=== PATIENT | female | born 1960 | race Caucasian/White ===

== ENCOUNTER 2016-11-08 16:27 | Emergency (ER) | payer OTHER ==
[~2016-11-08] VITALS: Ht 165.1 cm; Wt 113.6 kg
[2016-11-08 16:30] VITALS: BP 138/85; PULSE 95; RESP 22; O2SAT 95
[2016-11-08 17:44] LABS: BASOPHILS % (AUTO) 0.3 % (0-3); EOSINOPHILS % (AUTO) 4.4 % (0-5); MONOCYTES % (AUTO) 7.3 % (4-12); Mean Corpuscular Volume 82.1 fL (81-100); NEUTROPHILS % (AUTO) 57.8 % (40-74); Platelet Count 302 bil/L (150-400)
[2016-11-08 18:07] LABS: Magnesium 1.8 mg/dL (1.6-2.6)
--- NOTE | 2016-11-08 18:42 | ED.REPORT ---
HPI-Extremity Problem Upper Date of Service Nov 08, 2016 ED Provider: Lia Ray MD The patient is a 56 year old female who presents to the emergency department complaining of left ringer finger swelling and pain that began yesterday. There is now a blister forming on the distal portion. She denies any known injury or trauma. Over the last few weeks she has noticed a cough with green and yellow sputum, shortness of breath, raspy voice, fatigue, difficulty sleeping, nausea, and myalgias. She was seen in [place] on the for these symptoms and was diagnosed with Influenza and pleurisy. She denies fever. Nursing Notes Stated Complaint: POSSIBLE INFECTION IN FINGER Chief Complaint: Extremity Trauma Nursing Notes Reviewed: Yes Allergies: Coded Allergies: No Known Allergies (Unverified , 08/21/16) No Active Prescriptions or Reported Meds General Time Seen by MD: 18:18 Chief Complaint Finger injury left 4 Hx Obtained From: Patient, Other family... Arrived By: Walk-in Onset Occurred: Yesterday Symptom Duration: Since onset Location: : Finger left 4 Quality: Painful Severity: Current: Moderate Severity: Maximum: Moderate Recent Healthcare: No recent hospitalization, Recent doctor visit Similar Sx Previous: No Past Medical History Past Medical History Recent positive influenza Family History Noncontributory Social History Other Social History: Good social support, Local resident Ambulatory Status Independent Review of Systems Review of Systems Note: +raspy voice Constitutional: Reports: Chills, Fatigue, Malaise Musculoskeletal: Reports: Extremity pain, Extremity swelling, Myalgia Skin: Reports Rash Complete sys rev & neg: except as marked. Respiratory: Reports: Prod cough, green, Prod cough, yellow, Shortness of breath GI: Reports: Nausea Physical Exam Initial Vital Signs Vital Signs (First) Date Time Temp Pulse Resp B/P Pulse Ox O2 Delivery O2 Flow Rate FiO2 11/08/16 16:30 36.8 95 22 138/85 95 Room Air Initial VS: Reviewed Head / Eyes: Atraumatic, Normocephalic, PERRL ENT: Mucous membranes moist, Conjunctiva normal, No scleral icterus Neck: Supple, Non-tender, Full range of motion Respiratory: Breath sounds normal, Clear to auscultation, No respiratory distress Cardiovascular: Regular rate & rhythm, Heart sounds normal, Intact distal pulses Abdomen / GI: Soft, Non-tender, No guarding, No rebound, No distention Lower Extremities: Vascular intact, Neuro intact, No swelling, No tenderness Skin: Warm, Dry, No cyanosis Neurologic: Alert, Oriented, Nonfocal Psychiatric: Mood/affect normal, Behavior normal, Normal thought content General/Constitutional: Awake, Alert Appearance / Presentation: Positive: Uncomfortable Wrist / Hand: Neurologic intact, Vascular intact To her left 4th finger there is a paronychial bulla that goes all the way down to the DIP joint. There is slight erythema extending down to the first knuckle. Interpretation & Diagnostics Lab Results Interpretation Result Diagram: 11/08/16 1730 11/08/16 1730 Test 11/08/16 17:30 White Blood Count 9.4th/mm3 (3.8-10.1) Red Blood Count 4.53mil/mm3 (3.90-5.20) Hemoglobin 11.8g/dL (12.0-15.6) Hematocrit 37.2% (35.0-46.0) Mean Corpuscular Volume 82.1fL (81-100) Mean Corpuscular Hemoglobin 26.0pg (27.0-35.0) Mean Corpuscular Hemoglobin Concent 31.7% (32.0-37.0) Red Cell Distribution Width 16.3% (12.3-15.4) Platelet Count 302bil/L (150-400) Neutrophils (%) (Auto) 57.8% (40-74) Lymphocytes (%) (Auto) 29.8% (14-46) Monocytes (%) (Auto) 7.3% (4-12) Eosinophils (%) (Auto) 4.4% (0-5) Basophils (%) (Auto) 0.3% (0-3) Sodium Level 138mEq/L (134-144) Potassium Level 4.4mEq/L (3.5-5.2) Chloride Level 98mEq/L (97-108) Carbon Dioxide Level 26mmol/L (18-29) Blood Urea Nitrogen 10mg/dL (6-24) Creatinine 0.73mg/dL (0.57-1.00) Estimat Glomerular Filtration Rate 119mL/min (>59) Glucose Level 136mg/dL (60-99) Calcium Level 8.9mg/dL (8.5-10.1) Magnesium Level 1.8mg/dL (1.6-2.6) Total Bilirubin 0.3mg/dL (0.0-1.2) Aspartate Amino Transf (AST/SGOT) 25U/L (0-50) Alanine Aminotransferase (ALT/SGPT) 37U/L (0-32) Alkaline Phosphatase 125U/L (25-150) Total Protein 7.1g/dL (6.4-8.4) Albumin 3.7g/dL (3.4-5.0) Hold Howard Top Tube Received (Received) Procedures PROCEDURE: Bulla drainage NOTES: Time-out preformed. Left 4th finger paronychial bulla was incised and drained using a #15 blade. Serosanguineous and purulent fluid was removed. Patient tolerated procedure well. Condition improved. PROCEDURE: SPLINT NOTES: Splint was placed to left 4th finger. Neurovascular intact post splint placement. Re-Eval/Medical Decision Source of Hx: Old records Re-Evaluation/Progress : Time of Eval: 18:51 Re-Evaluation/Progress Note: Discussed plan for discharge. All questions were addressed. Counseled Regarding: Diagnosis, Need for follow-up, When/why to return to ED Discharge & Departure Impression: Primary Impression: Acute paronychia of finger of left hand Additional Impression: Skin bulla Disposition: Home Discharge Condition All VS Reviewed: Yes Condition: Stable Patient Instructions: Paronychia (ED) Additional Instructions: Thank you for entrusting us with your care today. Take Septra as prescribed for the finger infection. Soak the area and let the pus drain. Keep the area clean. Please return to the emergency department for any new or concerning symptoms, specifically: fever, chills, redness extending further up your hand, or vomiting. Thanks for being so patient tonight. Not fair to have the flu AND a finger infection. I hope you get some sleep tonight. Referrals: NOPCP (PCP) Scribe Attestation Portions of this note were transcribed by Soraya Lopez. I, Dr. Ray personally performed the history, physical exam and medical decision-making; I reviewed and confirmed the accuracy of the information in the transcribed note. Signed by:Jossie Macdonald, 11/08/2016 and 1905. Lia Ray MD Nov 08, 2016 18:42 John,Soraya Espino Nov 08, 2016 18:49
== END 2016-11-08 19:16 | disposition home or self-care (01) ==
LOC: SED 16:27
DX: L03.012 Cellulitis of left finger (principal)